=== PATIENT | female | born 2005 | race Caucasian/White ===

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

== ENCOUNTER 2024-03-04 07:06 | Emergency (ER) | payer OTHER, SELFPAY ==
[2024-03-04 07:09] VITALS: BP 104/74; PULSE 98; RESP 22; TEMP 36.6; O2SAT 97; BMI 19.4
--- NOTE | 2024-03-04 07:19 | CRLHL7_ITS ---
For Patients: As a result of the Century Cures Act, medical imaging exams and procedure reports are released immediately into your electronic medical record. You may view this report before your referring provider. If you have questions, please contact your health care provider. Indication: Dyspnea Technique: Chest 2 views Comparison: Chest x-ray 10/14/2023 Findings/Impression: Cardiovascular and mediastinum: Heart size and vasculature are normal in caliber and appearance. Mediastinum is within normal limits. Lungs and pleural spaces: Lungs are clear. No sign of infiltrate or mass. No sign of pleural effusion. No pneumothorax. Bones and soft tissues: No significant findings. Dictated by Miguel Ángel Summers MD @ 03/04/2024 7:56:12 AM (Electronically Signed)
--- NOTE | 2024-03-04 07:21 | ED.GENADULT ---
HPI - General Adult General Chief complaint: Shortness of Breath/Dyspnea Stated complaint: Asthma attack Time Seen by Provider: 03/04/24 07:20 Source: patient Mode of arrival: ambulatory Limitations: no limitations History of Present Illness HPI narrative: 18-year-old female with history of asthma presents to the emergency department for evaluation of shortness of breath and wheezing. Symptoms started last night prior to bed but were mild. Worsened through the night. She attempted to do a nebulizer treatment but then realized she was out of supplies and comes to the emergency department. No fever, no recent pertinent travel. Does have a history of asthma but is not typically on Singulair anymore. No prior history of hospitalization or intubation for asthma. No fevers, no pertinent travel or recent antibiotic use. No known illness exposures. Did not try any other interventions prior to coming to the ED as they were not available to her. States her past medical history is benign besides the asthma, no major long-term health problems. States that her only home medications are her inhaler and Benadryl as well as an oral contraceptive. Nonsmoker. ROS notable for the respiratory symptoms as described above only, otherwise denies times 12 systems. Related Data Home Medications ?Medication ?Instructions ?Recorded ?Confirmed albuterol sulfate 90 mcg/actuation 1 - 2 puff inhalation Q4-6H PRN 05/17/23 03/04/24 aerosol inhaler beclomethasone dipropionate 80 2 inh inhalation BID 05/17/23 03/04/24 mcg/actuation HFA breath activated aerosol (Qvar RediHaler) levonorgestrel-ethinyl estradiol 1 tab PO DAILY 05/17/23 03/04/24 0.1 mg-20 mcg tablet (Aviane) montelukast 10 mg tablet 10 mg PO QPM 05/17/23 03/04/24 Previous Rx's ?Medication ?Instructions ?Recorded albuterol sulfate 90 mcg/actuation 2 puff inhalation Q4-6H PRN 03/04/24 aerosol inhaler shortness of breath or wheezing #8.5 grams inhalational spacing device #1 ea 03/04/24 (Flexichamber spacer) ipratropium 0.5 mg-albuterol 3 mg 3 ml inhalation Q6-8H PRN Asthma 03/04/24 (2.5 mg base)/3 mL nebulization exacerbation #90 mL soln nebulizer accessories #1 ea 03/04/24 prednisone 20 mg tablet 20 mg PO DAILY #5 tabs 03/04/24 Allergies Allergy/AdvReac Type Severity Reaction Status Date / Time cat dander Allergy Unknown Verified 03/04/24 07:13 dog dander Allergy Unknown Verified 03/04/24 07:13 pollen extracts Allergy Unknown Verified 03/04/24 07:13 [facility] Social History Smoking Status: Never smoker Do you use any of these nicotine containing products: None How often do you have a drink containing alcohol: never AUDIT-C Alcohol total score: 0 Non-prescribed substance use: denies use Exam Const: Vital Signs, click to edit/add: Vital Signs - 24 hr 03/04/24 07:09 03/04/24 07:51 Temperature 97.8 F Pulse Rate [Pulse Oximeter] 98 72 Respiratory Rate 22 14 Blood Pressure [Ri ght Upper Arm] 104/74 Pulse Oximetry 97 97 Oxygen Delivery Me thod Room Air Room Air Documenting provider has reviewed patient's vital signs: yes Common normals: alert Other: Mildly dyspneic with conversation, sitting upright, mild use of accessory muscles. Appears well-nourished, well-hydrated, very polite. HENMT: Common normals: normocephalic and oropharynx normal Head and scalp: normocephalic Face and sinus: normal facial exam Mouth: oral and palatal mucosa normal Throat: posterior oropharynx normal Eye: Common normals: conjunctivae normal General eye: normal appearance of both eyes Conjunctiva: conjunctiva(e) normal Neck & C-Spine: General: normal visual inspection Chest: Common normals: inspection of chest normal Resp: Other: Mildly increased respiratory effort. Prolonged expiration 3-1 ratio with moderate expiratory wheeze, normal inspiratory findings. No crackles or rhonchi. Slightly decreased air entry. Cardio: Common normals: regular rate, regular rhythm, S1 normal heart sound, S2 normal heart sound and no murmurs Rate: regular rate Rhythm: regular rhythm Heart sounds: S1 normal and S2 normal Extremity: Common normals: normal to inspection, normal capillary refill and no pedal edema Neuro: Sensorium/orientation: alert Speech: speech normal Motor exam: no movement abnormalities noted Psych: Attitude: engaged Activity/motor behavior: appropriate eye contact Mood and affect: euthymic mood Insight: insight good Judgement: judgment good Skin: Common normals: no rashes or lesions noted General skin exam: no rashes or lesions noted Course Course ED Course: 89-year-old female with history of asthma presenting with wheezing. Mildly tachypneic with use of accessory muscles but no signs of hypoxia or impending respiratory failure. Will start DuoNeb, give 40 of prednisone, chest x-ray and swab for COVID as we are seeing a little surge of this and she would be a candidate for Paxlovid or other antiviral medication if indicated. Await clinical response. Reevaluation(s) Time of Reevaluation #1: 08:06 Reevaluation #1: Patient feeling markedly better. Reviewed reassuring chest x-ray, findings. Discussed management. Will re-dose prednisone at home at about 5:00 p.m. tonight and then continue once daily for the next few days. If she feels markedly better after 24 hours, she can wean herself off of the prednisone but continue if there is any clinical concern. Will refill asthma albuterol inhalers as well as nebulizer supplies to her pharmacy. Alarm symptoms reviewed that would warrant ED presentation. Also encouraged daily antihistamine like Claritin, Yvonne or Zyrtec. Patient verbalizes understanding and agreement Vital Signs Vital signs: Initial Vital Signs Temperature 97.8 F 03/04/24 07:09 Temperature Source Temporal Artery Scan 03/04/24 07:09 Pulse Rate 98 03/04/24 07:09 Respiratory Rate 22 03/04/24 07:09 Blood Pressure 104/74 03/04/24 07:09 Blood Pressure Mean 84 03/04/24 07:09 Pulse Oximetry 97 03/04/24 07:09 Oxygen Delivery Method Room Air 03/04/24 07:09 Vital Signs Temperature 97.8 F 03/04/24 07:09 Pulse Rate 98 03/04/24 07:09 Respiratory Rate 22 03/04/24 07:09 Blood Pressure 104/74 03/04/24 07:09 Pulse Oximetry 97 03/04/24 07:09 Oxygen Delivery Method Room Air 03/04/24 07:09 Temperature 97.8 F 03/04/24 07:09 Pulse Rate 72 03/04/24 07:51 Respiratory Rate 14 03/04/24 07:51 Blood Pressure 104/74 03/04/24 07:09 Pulse Oximetry 97 03/04/24 07:51 Oxygen Delivery Method Room Air 03/04/24 07:51 Medications Administered Medications: Discontinued Medications Generic Name Dose Route Start Last Admin Trade Name Myah PRN Reason Stop Dose Admin Albuterol/Ipratropium 1 neb 03/04/24 07:16 03/04/24 07:31 Iprat-Albut 0.5-2.5 Mg/3 Ml Neb IH 03/04/24 07:17 1 neb ONCE ONE Administration Prednisone 40 mg 03/04/24 07:19 03/04/24 07:31 Prednisone 20 Mg Tablet PO 03/04/24 07:20 40 mg ONCE ONE Administration Medical Decision Making Imaging Data Chest x-ray: Attestation: I have reviewed the pertinent imaging results. My impression: Normal chest x-ray Radiologist's impression: Findings/Impression: Cardiovascular and mediastinum: Heart size and vasculature are normal in caliber and appearance. Mediastinum is within normal limits. Lungs and pleural spaces: Lungs are clear. No sign of infiltrate or mass. No sign of pleural effusion. No pneumothorax. Bones and soft tissues: No significant findings. Dictated by Miguel Ángel Summers MD @ 03/04/2024 7:56:12 AM Discharge Plan Discharge Clinical Impression: Asthma with acute exacerbation Patient Disposition: Home w/ Parent or Adult Condition: Improved Instructions: Asthma (DC) Additional Instructions: I am glad that your breathing is doing so much better after the neb treatment. The prednisone will also help. I would like few to take an antihistamine like Claritin, Yvonne or Zyrtec once daily for the next few weeks. I do suspect that allergies are contributing to her symptoms today. I have prescribed some prednisone, take another dose at about 5:00 p.m. tonight and then continue once daily at about 5:00 p.m. for the next few days if needed. After tonight's dose if you are feeling markedly better, you can discontinue the prednisone but hang onto it in case of future flares. I will refill your neb supplies and inhalers. Try to pick pulling machine operator refills of those inhalers every time you go to the pharmacy so that you have multiple ones on hand. Try to use them with the spacer whenever possible as it does make them markedly more effective. If your breathing worsens again, please come back to the emergency department or follow-up with her primary care provider if your having flares requiring use of your albuterol more often than expected. Activity Level: No Restrictions Discharge Diet: Regular Prescriptions: New prednisone 20 mg tablet 20 mg PO DAILY Qty: 5 0RF albuterol sulfate 90 mcg/actuation HFA aerosol inhaler 2 puff inhalation Q4-6H PRN (Reason: shortness of breath or wheezing) Qty: 8.5 12RF (DME) Flexichamber Spacer See Rx Instructions .Route Qty: 1 1RF Rx Instructions: As directed (DME) nebulizer accessories Kit See Rx Instructions .Route Qty: 1 1RF Rx Instructions: As directed ipratropium-albuterol 0.5 mg-3 mg(2.5 mg base)/3 mL solution for nebulization 3 ml inhalation Q6-8H PRN (Reason: Asthma exacerbation) Qty: 90 2RF No Action levonorgestrel-ethinyl estrad [Aviane] 0.1-20 mg-mcg tablet 1 tab PO DAILY montelukast 10 mg tablet 10 mg PO QPM albuterol sulfate 90 mcg/actuation HFA aerosol inhaler 1 - 2 puff inhalation Q4-6H PRN Qvar RediHaler 80 mcg/actuation HFA aerosol breath activated 2 inh INHALATION BID Follow Up/Referrals: Provider,Not a Local [Primary Care Provider] - Stand Alone Forms: [employer] Info Instructions
[2024-03-04] MEDS: IPRAT-ALBUT 0.5-2.5 MG/3 ML NEB 1 NEB IH (07:31)
[2024-03-04] MEDS: predniSONE 20 MG TABLET 40 MG PO (07:31)
[2024-03-04 07:51] VITALS: PULSE 72; RESP 14; O2SAT 97
[2024-03-04 08:13] LABS: PCR FLU A Negative PCR FLU A (Negative); PCR FLU B Negative PCR FLU B (Negative); PCR RSV Negative PCR RSV (Negative); SARS PCR* Negative SARS-CoV-2 (Negative)
== END 2024-03-04 08:20 | disposition home or self-care (01) ==
PROVIDERS: Emergency Provider Family Medicine
DX: J45.901 Unspecified asthma with (acute) exacerbation (principal)
CPT/HCPCS: 71046; 87631; 94640; 99284; J7512

== ENCOUNTER 2024-07-13 18:33 | Inpatient (IN) | payer OTHER, SELFPAY ==
[2024-07-13] VITALS (31 sets, daily range): BP systolic 95–133; BP diastolic 54–118; PULSE 114–165; RESP 16–48; TEMP 36.4–37.1; O2SAT 86–95; BMI 19.4
--- NOTE | 2024-07-13 18:45 | CRLHL7_ITS ---
For Patients: As a result of the Cures Act, medical imaging exams and procedure reports are released immediately into your electronic medical record. You may view this report before your referring provider. If you have questions, please contact your health care provider. INDICATION: Shortness of breath, viral symptoms, asthma exacerbation TECHNIQUE: Chest radiograph 2 views COMPARISON: None FINDINGS: Mediastinum: The mediastinum is normal in appearance. The heart silhouette is normal in size and morphology. Lung: Severe hyperinflation is seen both lungs which can be due to asthma. No sign of pleural effusion seen. No pneumothorax is identified. Bone and Soft tissue: Unremarkable for age. IMPRESSION: 1. Severe hyperinflation is seen both lungs which can be due to asthma. Dictated by Laurent Reyes MD @ 07/13/2024 7:31:43 PM Dictated by: Laurent Reyes MD @ 07/13/2024 19:31:48 (Electronically Signed)
[2024-07-13] MEDS: predniSONE 20 MG TABLET 60 MG PO (18:55)
[2024-07-13] MEDS: IPRAT-ALBUT 0.5-2.5 MG/3 ML NEB 1 NEB IH ×2 (18:56→21:14)
[2024-07-13] MEDS: ALBUTEROL SULFATE 2.5 MG/3 ML VIAL.NEB NEB ×4 (18:58→22:53)
--- NOTE | 2024-07-13 19:40 | ED_ITS ---
HPI - Asthma General Date Seen: 07/13/24 <Duran Wagoner Jorge Luis - Last Filed: 07/13/24 20:29> Chief Complaint: Asthma <Duran Kang DO - Last Filed: 07/13/24 20:29> Stated Complaint: asthma attack <Duran Kang DO - Last Filed: 07/13/24 20:29> Time Seen by Provider: 07/13/24 18:36 <Duran Wagoner Jorge Luis DO - Last Filed: 07/13/24 20:29> Source: patient and family (Grandmother) <Duran Kang - Last Filed: 07/13/24 20:29> Mode of arrival: ambulatory <Duran Ciaran Joreg Luis - Last Filed: 07/13/24 20:29> Limitations: no limitations <Duran Kang - Last Filed: 07/13/24 20:29> History of Present Illness HPI Narrative: Patient is a 18-year-old female presenting to emergency department with her grandmother for an asthma exacerbation. She has been having viral symptoms this morning and her asthma has been gradually getting worse throughout the day. She has been using her rescue inhalers with some improvement what still is not feel like she is getting enough improvement. She has been to this emergency department multiple times before for asthma exacerbation which has previously been caused by RSV. She states they are trying to set up an appointment to adjust her asthma medications. Denies chest pain. Denies fevers, chills, weakness, numbness, abdominal pain, diarrhea, lightheadedness, dizziness. Has been having a cough and rhinorrhea. No history of blood clots and has not noticed any lower extremity swelling. <Duran Ciaran Kang - Last Filed: 07/13/24 20:29> Related Data Home Medications: Home Medications ?Medication ?Instructions ?Recorded ?Confirmed albuterol sulfate 90 mcg/actuation 1 - 2 puff inhalation Q4-6H PRN 05/17/23 aerosol inhaler beclomethasone dipropionate 80 2 inh inhalation BID 05/17/23 03/04/24 mcg/actuation HFA breath activated aerosol (Qvar RediHaler) levonorgestrel-ethinyl estradiol 1 tab PO DAILY 05/17/23 03/04/24 0.1 mg-20 mcg tablet (Aviane) montelukast 10 mg tablet 10 mg PO QPM 05/17/23 03/04/24 Previous Rx's ?Medication ?Instructions ?Recorded albuterol sulfate 90 mcg/actuation 2 puff inhalation Q4-6H PRN 03/04/24 aerosol inhaler shortness of breath or wheezing #8.5 grams inhalational spacing device #1 ea 03/04/24 (Flexichamber spacer) ipratropium 0.5 mg-albuterol 3 mg 3 ml inhalation Q6-8H PRN Asthma 03/04/24 (2.5 mg base)/3 mL nebulization exacerbation #90 mL soln nebulizer accessories #1 ea 03/04/24 prednisone 20 mg tablet 20 mg PO DAILY #5 tabs 03/04/24 prednisone 20 mg tablet 40 mg (2 x 20 mg) PO DAILY #8 tabs 07/13/24 <Duran Kang DO - Last Filed: 07/13/24 20:29> Allergies/Adverse Reactions: Allergies Allergy/AdvReac Type Severity Reaction Status Date / Time cat dander Allergy Unknown Verified 03/04/24 07:13 dog dander Allergy Unknown Verified 03/04/24 07:13 pollen extracts Allergy Unknown Verified 03/04/24 07:13 <Duran Kang DO - Last Filed: 07/13/24 20:29> Review of Systems Status of ROS Reports: 10 or more systems reviewed and unremarkable except as noted in History and below <Durna Kang DO - Last Filed: 07/13/24 20:29> PFSH PFS Social History: Social History Smoking Status: Never smoker Do you use any of these nicotine containing products: None How often do you have a drink containing alcohol: never AUDIT-C Alcohol total score: 0 Non-prescribed substance use: denies use <Duran Kang DO - Last Filed: 07/13/24 20:29> Exam Narrative: Exam Narrative: Const: Well-nourished, Well-developed, in moderate distress Eyes: PERRL, no conjunctival injection, and symmetrical lids HENT: Atraumatic external nose and ears. Moist mucous membranes. Neck: Symmetric, trachea midline, No thyromegaly. CVS: RRR, No murmurs or gallops. Peripheral pulses 2+ and equal in all extremities RESP: Increased respiratory effort with diffuse wheezing GI: Nontender/Nondistended, No rebound or guarding. MSK:Extremities w/o deformity, Normal Active ROM Skin: Warm, Dry. No rashes or lesions. Neuro: Normal Muscle tone, No focal neurological deficits. Psych: Awake, Alert, & Oriented x3. Appropriate mood and affect. <Duran Kang, DO - Last Filed: 07/13/24 20:29> Const: Vital Signs, click to edit/add: Vital Signs - 24 hr 07/13/24 18:41 07/13/24 18:42 07/13/24 18:45 Temperature Pulse Rate 163 H 165 H 160 H Pulse Rate [Pulse Oximeter] Respiratory Rate Blood Pressure 133/118 H Blood Pressure [Le ft Upper Arm] Pulse Oximetry 88 88 90 Oxygen Delivery Me thod Oxygen Flow Rate 07/13/24 18:59 07/13/24 19:00 07/13/24 19:09 Temperature 97.6 F Pulse Rate 144 H Pulse Rate [Pulse Oximeter] 154 H Respiratory Rate 48 H 36 H Blood Pressure Blood Pressure [Le ft Upper Arm] 120/88 Pulse Oximetry 86 L 91 92 Oxygen Delivery Me thod Room Air Oxygen Flow Rate 07/13/24 19:15 07/13/24 19:30 07/13/24 19:45 Temperature Pulse Rate 139 H 133 H 124 H Pulse Rate [Pulse Oximeter] Respiratory Rate 22 Blood Pressure Blood Pressure [Le ft Upper Arm] Pulse Oximetry 93 93 94 Oxygen Delivery Me thod Oxygen Flow Rate 07/13/24 20:00 07/13/24 20:15 07/13/24 20:30 Temperature Pulse Rate 128 H 135 H 129 H Pulse Rate [Pulse Oximeter] Respiratory Rate 24 Blood Pressure Blood Pressure [Le ft Upper Arm] Pulse Oximetry 92 93 92 Oxygen Delivery Me thod Room Air Oxygen Flow Rate 07/13/24 20:45 07/13/24 21:00 07/13/24 21:15 Temperature Pulse Rate 121 H 134 H 132 H Pulse Rate [Pulse Oximeter] Respiratory Rate Blood Pressure Blood Pressure [Le ft Upper Arm] Pulse Oximetry 92 91 88 Oxygen Delivery Me thod Oxygen Flow Rate 07/13/24 21:30 07/13/24 21:41 07/13/24 21:45 Temperature Pulse Rate 123 H 116 H 118 H Pulse Rate [Pulse Oximeter] Respiratory Rate 22 Blood Pressure 95/54 L Blood Pressure [Le ft Upper Arm] Pulse Oximetry 94 93 93 Oxygen Delivery Me thod Room Air Oxygen Flow Rate 07/13/24 21:55 07/13/24 22:00 07/13/24 22:05 Temperature Pulse Rate 120 H Pulse Rate [Pulse Oximeter] Respiratory Rate 24 24 Blood Pressure Blood Pressure [Le ft Upper Arm] Pulse Oximetry 89 90 89 Oxygen Delivery Me thod Room Air Room Air Oxygen Flow Rate 07/13/24 22:06 Temperature Pulse Rate Pulse Rate [Pulse Oximeter] Respiratory Rate 24 Blood Pressure Blood Pressure [Le ft Upper Arm] Pulse Oximetry 89 Oxygen Delivery Me thod Nasal Cannula Oxygen Flow Rate 2 <Duran Kang, DO - Last Filed: 07/13/24 20:29> Vital Signs, click to edit/add: Vital Signs - 24 hr 07/13/24 18:41 07/13/24 18:42 07/13/24 18:45 Temperature Pulse Rate 163 H 165 H 160 H Pulse Rate [Pulse Oximeter] Respiratory Rate Blood Pressure 133/118 H Blood Pressure [Le ft Upper Arm] Pulse Oximetry 88 88 90 Oxygen Delivery Me thod Oxygen Flow Rate 07/13/24 18:59 07/13/24 19:00 07/13/24 19:09 Temperature 97.6 F Pulse Rate 144 H Pulse Rate [Pulse Oximeter] 154 H Respiratory Rate 48 H 36 H Blood Pressure Blood Pressure [Le ft Upper Arm] 120/88 Pulse Oximetry 86 L 91 92 Oxygen Delivery Me thod Room Air Oxygen Flow Rate 07/13/24 19:15 07/13/24 19:30 07/13/24 19:45 Temperature Pulse Rate 139 H 133 H 124 H Pulse Rate [Pulse Oximeter] Respiratory Rate 22 Blood Pressure Blood Pressure [Le ft Upper Arm] Pulse Oximetry 93 93 94 Oxygen Delivery Me thod Oxygen Flow Rate 07/13/24 20:00 07/13/24 20:15 07/13/24 20:30 Temperature Pulse Rate 128 H 135 H 129 H Pulse Rate [Pulse Oximeter] Respiratory Rate 24 Blood Pressure Blood Pressure [Le ft Upper Arm] Pulse Oximetry 92 93 92 Oxygen Delivery Me thod Room Air Oxygen Flow Rate 07/13/24 20:45 07/13/24 21:00 07/13/24 21:15 Temperature Pulse Rate 121 H 134 H 132 H Pulse Rate [Pulse Oximeter] Respiratory Rate Blood Pressure Blood Pressure [Le ft Upper Arm] Pulse Oximetry 92 91 88 Oxygen Delivery Me thod Oxygen Flow Rate 07/13/24 21:30 07/13/24 21:41 07/13/24 21:45 Temperature Pulse Rate 123 H 116 H 118 H Pulse Rate [Pulse Oximeter] Respiratory Rate 22 Blood Pressure 95/54 L Blood Pressure [Le ft Upper Arm] Pulse Oximetry 94 93 93 Oxygen Delivery Me thod Room Air Oxygen Flow Rate 07/13/24 21:55 07/13/24 22:00 07/13/24 22:05 Temperature Pulse Rate 120 H Pulse Rate [Pulse Oximeter] Respiratory Rate 24 24 Blood Pressure Blood Pressure [Le ft Upper Arm] Pulse Oximetry 89 90 89 Oxygen Delivery Me thod Room Air Room Air Oxygen Flow Rate 07/13/24 22:06 Temperature Pulse Rate Pulse Rate [Pulse Oximeter] Respiratory Rate 24 Blood Pressure Blood Pressure [Le ft Upper Arm] Pulse Oximetry 89 Oxygen Delivery Me thod Nasal Cannula Oxygen Flow Rate 2 <Estiven Alvarado MD - Last Filed: 07/13/24 22:08> Course Course ED Course: Patient signed out to Dr. Alvarado at 9:[address] Alvarado and Dr. Kang recheck the patient at her bedside. She is not not received 60 mg of prednisone, DuoNeb x1, albuterol neb x3. She had presented with shortness of breath, chest tightness, and was hypoxic and tachycardic up to the 160s. After treatments, sats are now about 90-91% on room air. Patient is alert, oriented, conversant and watching TV. She says she is feeling quite a bit better but still having some mild chest tightness. Repeat lung exam reveals bilateral expiratory wheezes throughout. She is moving some air but still moderately tight. Will order additional DuoNeb (for an ER total of 1 mg ipratropium, and an additional dose of albuterol). Also will give magnesium sulfate 2 g IV. Because of tachycardia, which I think is probably related to beta agonist him, will also give a 500 mL bolus of saline. Recheck -945. His completed 2nd DuoNeb and magnesium sulfate infusion. Says she is feeling much better. Repeat lung exam reveals generally clear lung sounds with minimal ongoing wheezing. Much better than my 1st exam. Oxygen sat up to 94% room air. Heart rate still about 120-130, sinus tach on the monitor. She is alert, watching television with her mother. Recheck -1005. Her sister port that she is hypoxic again. Sats are 88-89% on room air. Will place her on nasal cannula. I re-evaluated the patient. She still alert. Respirations are unlabored. At this point not needing high-flow nasal cannula, BiPAP. However with recurrent hypoxia given the number of nebs she has already received here in the ER, I think she needs hospitalization for oxygen supplementation. Patient and her mother agree. Contacted our hospitalist, Dr. Dias who graciously accepts for admission. <Estiven Alvarado MD - Last Filed: 07/13/24 22:08> Vital Signs Vital signs: Initial Vital Signs Pulse Rate 163 H 07/13/24 18:41 Blood Pressure 133/118 H 07/13/24 18:41 Blood Pressure Mean 123 H 07/13/24 18:41 Pulse Oximetry 88 07/13/24 18:41 Vital Signs Pulse Rate 163 H 07/13/24 18:41 Blood Pressure 133/118 H 07/13/24 18:41 Pulse Oximetry 88 07/13/24 18:41 Temperature 97.6 F 07/13/24 18:59 Pulse Rate 120 H 07/13/24 22:00 Respiratory Rate 24 07/13/24 22:06 Blood Pressure 95/54 L 07/13/24 21:41 Pulse Oximetry 89 07/13/24 22:06 Oxygen Delivery Method Nasal Cannula 07/13/24 22:06 Oxygen Flow Rate 2 07/13/24 22:06 <Duran Kang DO - Last Filed: 07/13/24 20:29> Initial Vital Signs Pulse Rate 163 H 07/13/24 18:41 Blood Pressure 133/118 H 07/13/24 18:41 Blood Pressure Mean 123 H 07/13/24 18:41 Pulse Oximetry 88 07/13/24 18:41 Vital Signs Pulse Rate 163 H 07/13/24 18:41 Blood Pressure 133/118 H 07/13/24 18:41 Pulse Oximetry 88 07/13/24 18:41 Temperature 97.6 F 07/13/24 18:59 Pulse Rate 120 H 07/13/24 22:00 Respiratory Rate 24 07/13/24 22:06 Blood Pressure 95/54 L 07/13/24 21:41 Pulse Oximetry 89 07/13/24 22:06 Oxygen Delivery Method Nasal Cannula 07/13/24 22:06 Oxygen Flow Rate 2 07/13/24 22:06 <Estiven Alvarado MD - Last Filed: 07/13/24 22:08> Medications Administered Medications: Discontinued Medications Generic Name Dose Route Start Last Admin Trade Name Rodolfoq PRN Reason Stop Dose Admin Albuterol 2.5 mg 07/13/24 18:44 07/13/24 18:58 Albuterol Sulfate 2.5 Mg/3 Ml Vial.Neb [facility] 07/13/24 18:45 2.5 mg ONCE ONE Administration Albuterol 2.5 mg 07/13/24 18:56 07/13/24 18:58 Albuterol Sulfate 2.5 Mg/3 Ml Vial.Neb [facility] 07/13/24 18:57 2.5 mg ONCE ONE Administration Albuterol 2.5 mg 07/13/24 20:10 07/13/24 20:31 Albuterol Sulfate 2.5 Mg/3 Ml Vial.Neb [facility] 07/13/24 20:11 2.5 mg ONCE ONE Administration Albuterol/Ipratropium 1 neb 07/13/24 18:44 07/13/24 18:56 Iprat-Albut 0.5-2.5 Mg/3 Ml Neb 07/13/24 18:45 1 neb ONCE ONE Administration Albuterol/Ipratropium 1 neb 07/13/24 21:07 07/13/24 21:14 Iprat-Albut 0.5-2.5 Mg/3 Ml [facility] 07/13/24 21:08 1 neb ONCE ONE Administration Sodium Chloride 500 mls @ 500 mls/hr 07/13/24 21:07 07/13/24 21:14 0.9 % Sodium Chloride 500 Ml IV 07/13/24 22:06 500 mls/hr .Q1H ONE Administration Magnesium Sulfate 2 gm in 50 mls @ 150 mls/hr 07/13/24 21:07 07/13/24 21:15 Magnesium Iv IVPB 07/13/24 21:26 150 mls/hr ONCE ONE Administration Prednisone 60 mg 07/13/24 18:45 07/13/24 18:55 Prednisone 20 Mg Tablet PO 07/13/24 18:46 60 mg ONCE ONE Administration <Duran Kang, DO - Last Filed: 07/13/24 20:29> Discontinued Medications Generic Name Dose Route Start Last Admin Trade Name Myah PRN Reason Stop Dose Admin Albuterol 2.5 mg 07/13/24 18:44 07/13/24 18:58 Albuterol Sulfate 2.5 Mg/3 Ml Vial.Neb [facility] 07/13/24 18:45 2.5 mg ONCE ONE Administration Albuterol 2.5 mg 07/13/24 18:56 07/13/24 18:58 Albuterol Sulfate 2.5 Mg/3 Ml Vial.[facility] 07/13/24 18:57 2.5 mg ONCE ONE Administration Albuterol 2.5 mg 07/13/24 20:10 07/13/24 20:31 Albuterol Sulfate 2.5 Mg/3 Ml Vial.[facility] 07/13/24 20:11 2.5 mg ONCE ONE Administration Albuterol/Ipratropium [address] [facility] 07/13/24 18:44 07/13/24 18:56 Iprat-Albut 0.5-2.5 Mg/3 Ml [facility] 07/13/24 18:45 1 neb ONCE ONE Administration Albuterol/Ipratropium [address] [facility] 07/13/24 21:07 07/13/24 21:14 Iprat-Albut 0.5-2.5 Mg/3 Ml [facility] 07/13/24 21:08 1 neb ONCE ONE Administration Sodium Chloride 500 mls @ 500 mls/hr 07/13/24 21:07 07/13/24 21:14 0.9 % Sodium Chloride 500 Ml IV 07/13/24 22:06 500 mls/hr .Q1H ONE Administration Magnesium Sulfate 2 gm in 50 mls @ 150 mls/hr 07/13/24 21:07 07/13/24 21:15 Magnesium Iv IVPB 07/13/24 21:26 150 mls/hr ONCE ONE Administration Prednisone 60 mg 07/13/24 18:45 07/13/24 18:55 Prednisone 20 Mg Tablet PO 07/13/24 18:46 60 mg ONCE ONE Administration <Estiven Alvarado MD - Last Filed: 07/13/24 22:08> MDM - Asthma MDM Narrative Medical decision making narrative: Patient is an 17-year-old female presenting for an asthma exacerbation. There is concerned about some viral issues causing her symptoms will do a COVID/flu/RSV test. Seems unlikely to be ACS related considering her age. PE seems unlikely considering presentation as asthma is much more likely cause of her symptoms. Will do a chest x-ray to look for signs of pneumonia. Prednisone given along with DuoNebs and two albuterol treatments. She is feeling better of the DuoNebs and albuterol. She is tachycardic and feeling jittery but this is likely due to the overall. Repeat auscultation of her lungs shows greatly improved wheezing with only mild expiratory wheezes heard at this time. I offered further his breathing treatments but she is not feel like she needs them anymore. X-ray showed no concerning abnormalities as reviewed by myself and the radiologist. Viral swabs are negative. While room onto the patient she became short of breath again in on exam she was wheezing notably again. A 3rd albuterol was given and after this appeared all she states this was the best she has felt so far. After re-examination after the albuterol there is very faint wheezing on exhalation. Definitely better than previously. Will continue to monitor her. Did inform her next step would possibly be magnesium IV. Will prescribe prednisone at discharge. Since she got prednisone emergency department will give 4 more days to start tomorrow for a total of 5 days. <Duran Kang, - Last Filed: 07/13/24 20:29> Lab Data Labs: Lab Results 07/13/24 Range/Units 19:05 SARS-CoV-2 (PCR) Negative SARS-CoV-2 (Negative) Influenza Type A (PCR) Negative PCR FLU A (Negative) Influenza Type B (PCR) Negative PCR FLU B (Negative) RSV (PCR) Negative PCR RSV (Negative) <Duran Kang, - Last Filed: 07/13/24 20:29> Lab Results 07/13/24 Range/Units 19:05 SARS-CoV-2 (PCR) Negative SARS-CoV-2 (Negative) Influenza Type A (PCR) Negative PCR FLU A (Negative) Influenza Type B (PCR) Negative PCR FLU B (Negative) RSV (PCR) Negative PCR RSV (Negative) <Estiven Alvarado MD - Last Filed: 07/13/24 22:08> Discharge Plan Discharge Clinical Impression: Hypoxia Asthma with acute exacerbation Qualifiers: Asthma severity: unspecified severity Asthma persistence: unspecified Qualified Code(s): J45.901 - Unspecified asthma with (acute) exacerbation <Duran Kang DO - Last Filed: 07/13/24 20:29> Instructions: Asthma (DC) <Duran Kang DO - Last Filed: 07/13/24 20:29> Additional Instructions: Make sure to have close follow-up for your asthma exacerbation. 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 I do find it bili would be the best option to get in the soonest. Make sure to use your home treatments and take the prednisone as directed. <Duran Kang DO - Last Filed: 07/13/24 20:29> Prescriptions: New prednisone 20 mg tablet 40 mg PO DAILY Qty: 8 0RF No Action levonorgestrel-ethinyl estrad [Aviane] 0.1-20 mg-mcg tablet 1 tab PO DAILY montelukast 10 mg tablet 10 mg PO QPM albuterol sulfate 90 mcg/actuation HFA aerosol inhaler 1 - 2 puff inhalation Q4-6H PRN Qvar RediHaler 80 mcg/actuation HFA aerosol breath activated 2 inh INHALATION BID prednisone 20 mg tablet 20 mg PO DAILY Qty: 5 0RF albuterol sulfate 90 mcg/actuation HFA aerosol inhaler 2 puff inhalation Q4-6H PRN (Reason: shortness of breath or wheezing) Qty: 8.5 12RF (DME) Flexichamber Spacer See Rx Instructions .Route Qty: 1 1RF Rx Instructions: As directed (DME) nebulizer accessories Kit See Rx Instructions .Route Qty: 1 1RF Rx Instructions: As directed ipratropium-albuterol 0.5 mg-3 mg(2.5 mg base)/3 mL solution for nebulization 3 ml inhalation Q6-8H PRN (Reason: Asthma exacerbation) Qty: 90 2RF <Duran Kang DO - Last Filed: 07/13/24 20:29> Follow Up/Referrals: Provider,Not a Local [Primary Care Provider] - <Duran Kang DO - Last Filed: 07/13/24 20:29> Stand Alone Forms: MyHealth Info Instructions <Duran Kang DO - Last Filed: 07/13/24 20:29>
[2024-07-13 19:47] LABS: PCR FLU A Negative PCR FLU A (Negative); PCR FLU B Negative PCR FLU B (Negative); PCR RSV Negative PCR RSV (Negative); SARS PCR* Negative SARS-CoV-2 (Negative)
[2024-07-13] MEDS: 0.9 % SODIUM CHLORIDE 500 ML 500 ML IV (21:14)
[2024-07-13] MEDS: MAGNESIUM IV 2 GM/50 ML PIGGYBACK IVPB (21:15)
--- NOTE | 2024-07-13 23:23 | P.IMHP_ITS ---
Hospitalist- H&P: HPI History of Present Illness Time Seen by Provider: 22:40 Date Seen: 07/14/24 Chief complaint: asthma attack Narrative: Emma Eid is a 18 year old female with long standing h/o asthma who presented through the ER with a severe asthma exacerbation that began this morning. She has had asthma since the age of 2 and has been taking daily montelukast, Qvar, and uses her rescue inhaler twice a week, usually at night. She has allergies to pet dander, grass and several other environmental allergens. She owns a dog and is currently living with her grandparents [place] their [place], although she avoids the barn. She went to bed in her usual state of health, but woke up this morning feeling congested, like her chest was tight and full of mucous. She tried her rescue inhaler without effect. She denies sick contacts, fevers, chest pain, headaches, or rashes. ER course: Duoneb x 2, albuterol neb x 3, Magnesium 2g IV, prednisone 60 mg po (given at 6:53 p.m.), Covid/flu/RSV swab negative. Review of Systems Status of ROS: Reports: unobtainable due to medical condition (acute respirator failure) [facility] Medical History (Updated 07/14/24 @ 00:23 by Renate Dias MD) Multiple environmental allergies ?Z91.09 - Other allergy status, other than to drugs and biological substances (ICD-10) Asthma ?J45.909 - Unspecified asthma, uncomplicated (ICD-10) Social History (Updated 07/14/24 @ 00:03 by Renate Dias MD) Narrative: Recently graduated from [employer] and looking for a job. Living with grandparents. Denies current tobacco use. Quit smoking 2-3 years ago, had smoked 1/2 ppd for 2 years. Denies EtOH use. Occasional marijuana use, last used 2 months ago. FULL CODE. Smoking Status: Former smoker Do you use any of these nicotine containing products: None How often do you have a drink containing alcohol: never AUDIT-C Alcohol total score: 0 Non-prescribed substance use: denies use Meds Home Medications and Allergies Home Medications ?Medication ?Instructions ?Recorded ?Confirmed ?Type albuterol sulfate 90 mcg/actuation 1 - 2 puff inhalation Q4-6H PRN 05/17/23 03/04/24 History aerosol inhaler beclomethasone dipropionate 80 2 inh inhalation BID 05/17/23 03/04/24 History mcg/actuation HFA breath activated aerosol (Qvar RediHaler) levonorgestrel-ethinyl estradiol 1 tab PO DAILY 05/17/23 03/04/24 History 0.1 mg-20 mcg tablet (Aviane) montelukast 10 mg tablet 10 mg PO QPM 05/17/23 03/04/24 History Allergies Allergy/AdvReac Type Severity Reaction Status Date / Time cat dander Allergy Unknown Verified 03/04/24 07:13 dog dander Allergy Unknown Verified 03/04/24 07:13 pollen extracts Allergy Unknown Verified 03/04/24 07:13 Exam Narrative: Exam Narrative: General: In bed, tripoding, diaphoretic, one-word answers, tachypneic, anxious, awake, alert, oriented x3. HEENT: Normocephalic atraumatic, pupils equally round and reactive to light and accommodation. Oropharynx clear. Mucous membranes are moist. No cervical lymphadenopathy. Cardiovascular: Tachycardia, regular. No murmurs, gallops, or rubs. Chest: Severe respiratory distress as above with use of accessory muscles. Tight, expiratory wheezes throughout, no crackles. Abdomen: Bowel sounds present. Soft, nondistended, nontender. No hepatosplenomegaly or masses. Extremities: No edema, no cyanosis or clubbing. Skin: No jaundice, no rashes on visible skin. Const: Vital Signs, click to edit/add: Vital Signs - 24 hr 07/13/24 18:41 07/13/24 18:42 07/13/24 18:45 Temperature Pulse Rate 163 H 165 H 160 H Pulse Rate [Left] Pulse Rate [Pulse Oximeter] Respiratory Rate Blood Pressure 133/118 H Blood Pressure [Le ft Upper Arm] Blood Pressure [Ri ght Arm] Pulse Oximetry 88 88 90 Oxygen Delivery Me thod Oxygen Flow Rate 07/13/24 18:59 07/13/24 19:00 07/13/24 19:09 Temperature 97.6 F Pulse Rate 144 H Pulse Rate [Left] Pulse Rate [Pulse Oximeter] 154 H Respiratory Rate 48 H 36 H Blood Pressure Blood Pressure [Le ft Upper Arm] 120/88 Blood Pressure [Ri ght Arm] Pulse Oximetry 86 L 91 92 Oxygen Delivery Me thod Room Air Oxygen Flow Rate 07/13/24 19:15 07/13/24 19:30 07/13/24 19:45 Temperature Pulse Rate 139 H 133 H 124 H Pulse Rate [Left] Pulse Rate [Pulse Oximeter] Respiratory Rate 22 Blood Pressure Blood Pressure [Le ft Upper Arm] Blood Pressure [Ri ght Arm] Pulse Oximetry 93 93 94 Oxygen Delivery Me thod Oxygen Flow Rate 07/13/24 20:00 07/13/24 20:15 07/13/24 20:30 Temperature Pulse Rate 128 H 135 H 129 H Pulse Rate [Left] Pulse Rate [Pulse Oximeter] Respiratory Rate 24 Blood Pressure Blood Pressure [Le ft Upper Arm] Blood Pressure [Ri ght Arm] Pulse Oximetry 92 93 92 Oxygen Delivery Me thod Room Air Oxygen Flow Rate 07/13/24 20:45 07/13/24 21:00 07/13/24 21:15 Temperature Pulse Rate 121 H 134 H 132 H Pulse Rate [Left] Pulse Rate [Pulse Oximeter] Respiratory Rate Blood Pressure Blood Pressure [Le ft Upper Arm] Blood Pressure [Ri ght Arm] Pulse Oximetry 92 91 88 Oxygen Delivery Me thod Oxygen Flow Rate 07/13/24 21:30 07/13/24 21:41 07/13/24 21:45 Temperature Pulse Rate 123 H 116 H 118 H Pulse Rate [Left] Pulse Rate [Pulse Oximeter] Respiratory Rate 22 Blood Pressure 95/54 L Blood Pressure [Le ft Upper Arm] Blood Pressure [Ri ght Arm] Pulse Oximetry 94 93 93 Oxygen Delivery Me thod Room Air Oxygen Flow Rate 07/13/24 21:55 07/13/24 22:00 07/13/24 22:05 Temperature Pulse Rate 120 H Pulse Rate [Left] Pulse Rate [Pulse Oximeter] Respiratory Rate 24 24 Blood Pressure Blood Pressure [Le ft Upper Arm] Blood Pressure [Ri ght Arm] Pulse Oximetry 89 90 89 Oxygen Delivery Me thod Room Air Room Air Oxygen Flow Rate 07/13/24 22:06 07/13/24 22:10 07/13/24 22:15 Temperature Pulse Rate Pulse Rate [Left] Pulse Rate [Pulse Oximeter] Respiratory Rate 24 Blood Pressure Blood Pressure [Le ft Upper Arm] Blood Pressure [Ri ght Arm] Pulse Oximetry 89 92 90 Oxygen Delivery Me thod Nasal Cannula Nasal Cannula Nasal Cannula Oxygen Flow Rate 2 2 3 07/13/24 23:14 Temperature 98.7 F Pulse Rate Pulse Rate [Left] 123 H Pulse Rate [Pulse Oximeter] Respiratory Rate Blood Pressure Blood Pressure [Le ft Upper Arm] Blood Pressure [Ri ght Arm] 118/72 Pulse Oximetry 92 Oxygen Delivery Me thod Nasal Cannula Oxygen Flow Rate 5 Hospitalist - H&P: Result Labs Labs: 07/13/2024 11:30 p.m. ABG: PH 7.39. PCO2 32 mm Hg. PO2 74 mm Hg. HC03 19 millimoles per L. Total CO2 17 millimoles per L. Ordering Physician: Duran Kang D.O. Date of Service: 07/13/24 Procedure(s): XR chest 2V Accession Number(s): [id number] cc: Duran Kang D.O.; Provider,Not a Local~ For Patients: As a result of the Cures Act, medical imaging exams and procedure reports are released immediately into your electronic medical record. You may view this report before your referring provider. If you have questions, please contact your health care provider. INDICATION: Shortness of breath, viral symptoms, asthma exacerbation TECHNIQUE: Chest radiograph 2 views COMPARISON: None FINDINGS: Mediastinum: The mediastinum is normal in appearance. The heart silhouette is normal in size and morphology. Lung: Severe hyperinflation is seen both lungs which can be due to asthma. No sign of pleural effusion seen. No pneumothorax is identified. Bone and Soft tissue: Unremarkable for age. IMPRESSION: 1. Severe hyperinflation is seen both lungs which can be due to asthma. Dictated by Laurent Reyes MD @ 07/13/2024 7:31:43 PM Dictated by: Laurent Reyes MD @ 07/13/2024 19:31:48 (Electronically Signed) Assessment and Plan Assessment and plan (1) Acute hypoxemic respiratory failure: Status: Acute (2) Asthma with acute exacerbation: Status: Acute Plan - Life threatening asthma exacerbation with tripoding, diaphoretic, HR>120, hypoxic. Admit to CCU, start high flow NC, transfer as patient has high likelihood of needing mechanical ventilation/ICU care. ABG obtained. I do not have RT or ability to do peak flow at this time. Continue alb and alb/ipatroprium nebs. Prednisone and magnesium given in ED. Could consider epinephrine as patient has environmental allergies that may contribute to asthma.
[2024-07-13 23:37] LABS: ABG PCO2 32 mmHG (35-45); Base Excess ABG -5.2 mmol/L (-3.0-3.0); HCO3 ABG 19 mmol/L (21-28); Oxygen Saturation ABG 95 % (92-100); TCO2 ABG 17 mmol/l (21-30); pH ABG 7.39 (7.35-7.45)
[2024-07-13 23:41] LABS: Carboxyhemoglobin* < 1.0 % (0.0-5.0)
[2024-07-13] MEDS: 0.9 % SODIUM CHLORIDE 1000 ml 1,000 ML 50 ML IV (23:49)
[2024-07-14 00:05] VITALS: PULSE 126
--- NOTE | 2024-07-14 00:38 | P.DS_ITS ---
Transfer Discharge Sum: Prov Provider Date Seen: 07/13/24 Date of admission: 07/13/24 23:24 Primary care physician: Not a Local Provider Consults: 07/13/24 23:24 Consult to Respiratory Therapy [CONS] Routine Comment: Reason(s) for RT Consult:: Consult Anticipated date of transfer: 07/14/24 Receiving physician/facility: [place], [facility], [facility] DS: Diagnosis Discharge Diagnosis (1) Acute hypoxemic respiratory failure: Status: Acute (2) Asthma with acute exacerbation: Status: Acute Transfer Discharge Sum: Med Medications Active and Home Medications: Home Medications albuterol sulfate 90 mcg/actuation aerosol inhaler 1 - 2 puff inhalation Q4-6H PRN 05/17/23 [History Confirmed 03/04/24] beclomethasone dipropionate 80 mcg/actuation HFA breath activated aerosol (Qvar RediHaler) 2 inh inhalation BID 05/17/23 [History Confirmed 03/04/24] levonorgestrel-ethinyl estradiol 0.1 mg-20 mcg tablet (Aviane) 1 tab PO DAILY 05/17/23 [History Confirmed 03/04/24] montelukast 10 mg tablet 10 mg PO QPM 05/17/23 [History Confirmed 03/04/24] albuterol sulfate 90 mcg/actuation aerosol inhaler 2 puff inhalation Q4-6H PRN shortness of breath or wheezing #8.5 grams 03/04/24 [Rx] inhalational spacing device (Flexichamber spacer) #1 ea 03/04/24 [Rx] ipratropium 0.5 mg-albuterol 3 mg (2.5 mg base)/3 mL nebulization soln 3 ml inhalation Q6-8H PRN Asthma exacerbation #90 mL 03/04/24 [Rx] nebulizer accessories #1 ea 03/04/24 [Rx] prednisone 20 mg tablet 20 mg PO DAILY #5 tabs 03/04/24 [Rx] prednisone 20 mg tablet 40 mg (2 x 20 mg) PO DAILY #8 tabs 07/13/24 [Rx] Active Medications Acetaminophen (Acetaminophen 325 Mg Tablet) 975 mg PO Q6H PRN PRN Reason: pain or fever Albuterol (Albuterol Sulfate 2.5 Mg/3 Ml Vial.Neb) 2.5 mg NEB Q4H PRN Last Admin: 07/13/24 22:53 Dose: 2.5 mg Albuterol/Ipratropium (Iprat-Albut 0.5-2.5 Mg/3 Ml Neb) 1 neb IH Q6H [facility] Sodium Chloride (0.9 % Sodium Chloride 1000 Ml) 1,000 mls @ 50 mls/hr IV .Q20H ANN MARIE Last Admin: 07/13/24 23:49 Dose: 50 mls/hr Montelukast Sodium (Montelukast 10 Mg Tablet) 10 mg PO QPM [facility] Non-Formulary Medication (Levonorgestrel-Ethinyl Estrad [Aviane]) 1 tab PO DAILY [facility]IE Prednisone (Prednisone 20 Mg Tablet) 60 mg PO DAILYWM ANN MARIE Sodium Chloride (Sodium Chloride 0.9 % (Flush) 10 Ml Syringe) 5 ml IVF .FLUSH PRN Sodium Chloride (Sodium Chloride 0.9 % (Flush) 10 Ml Syringe) 5 ml IVF BID ANN MARIE Transfer Discharge Sum: Hosp Hospital Course Hospital course: Emma Eid is a 18 year old female with long standing h/o asthma who presented through the ER with a severe asthma exacerbation that began this morning. She has had asthma since the age of 2 and has been taking daily montelukast, Qvar, and uses her rescue inhaler twice a week, usually at night. She has allergies to pet dander, grass and several other environmental allergens. She owns a dog and is currently living with her grandparents [place] their [place], although she avoids the barn. She went to bed in her usual state of health, but woke up this morning feeling congested, like her chest was tight and full of mucous. She tried her rescue inhaler without effect. She denies sick contacts, fevers, chest pain, headaches, or rashes. ER course: Duoneb x 2, albuterol neb x 3, Magnesium 2g IV, prednisone 60 mg po (given at 6:53 p.m.), Covid/flu/RSV swab negative. With these interventions patient's HR improved and respiratory status improved, but when she arrived on the medical/surgical floor, she was diaphoretic and started to have more difficulty breathing and higher oxygen needs. She was given an additional albuterol neb, transferred to the CCU and started on high flow oxygen. ABG was also obtained. Her respiratory status improved for a brief time with these interventions. She has had several more episodes of severe respiratory distress even while on high flow. Per patient and family request, I have called [facility] (they do not take patient's over 18), [facility] (they would not take her unless adult hospitals were full), [facility] (no beds), [facility]. Time Spent with Patient Time attestation: Total time spent providing and/or coordinating transfer services: Exam Narrative: Exam Narrative: Upon admission: General: In bed, tripoding, diaphoretic, one-word answers, tachypneic, anxious, awake, alert, oriented x3. HEENT: Normocephalic atraumatic, pupils equally round and reactive to light and accommodation. Oropharynx clear. Mucous membranes are moist. No cervical lymphadenopathy. Cardiovascular: Tachycardia, regular. No murmurs, gallops, or rubs. Chest: Severe respiratory distress as above with use of accessory muscles. Tight, expiratory wheezes throughout, no crackles. Abdomen: Bowel sounds present. Soft, nondistended, nontender. No hepatosplenomegaly or masses. Extremities: No edema, no cyanosis or clubbing. Skin: No jaundice, no rashes on visible skin. Reassessment after neb and on high flow: General: In bed, sitting up, more comfortable, diaphoresis improving, but still present. Awake, alert, oriented x3. Cardiovascular: Tachycardia, regular. No murmurs, gallops, or rubs. Chest: Moderate respiratory distress as above, not currently using accessory muscles. Tight, expiratory wheezes throughout, no crackles. Extremities: No cyanosis. Const: Vital Signs, click to edit/add: Vital Signs - 24 hr 07/13/24 18:41 07/13/24 18:42 07/13/24 18:45 Temperature Pulse Rate 163 H 165 H 160 H Pulse Rate [Left] Pulse Rate [Pulse Oximeter] Respiratory Rate Blood Pressure 133/118 H Blood Pressure [Le ft Arm] Blood Pressure [Le ft Upper Arm] Blood Pressure [Ri ght Arm] Pulse Oximetry 88 88 90 Oxygen Delivery Me thod Oxygen Flow Rate Fraction of Inspir ed Oxygen 07/13/24 18:59 07/13/24 19:00 07/13/24 19:09 Temperature 97.6 F Pulse Rate 144 H Pulse Rate [Left] Pulse Rate [Pulse Oximeter] 154 H Respiratory Rate 48 H 36 H Blood Pressure Blood Pressure [Le ft Arm] Blood Pressure [Le ft Upper Arm] 120/88 Blood Pressure [Ri ght Arm] Pulse Oximetry 86 L 91 92 Oxygen Delivery Me thod Room Air Oxygen Flow Rate Fraction of Inspir ed Oxygen 07/13/24 19:15 07/13/24 19:30 07/13/24 19:45 Temperature Pulse Rate 139 H 133 H 124 H Pulse Rate [Left] Pulse Rate [Pulse Oximeter] Respiratory Rate 22 Blood Pressure Blood Pressure [Le ft Arm] Blood Pressure [Le ft Upper Arm] Blood Pressure [Ri ght Arm] Pulse Oximetry 93 93 94 Oxygen Delivery Me thod Oxygen Flow Rate Fraction of Inspir ed Oxygen 07/13/24 20:00 07/13/24 20:15 07/13/24 20:30 Temperature Pulse Rate 128 H 135 H 129 H Pulse Rate [Left] Pulse Rate [Pulse Oximeter] Respiratory Rate 24 Blood Pressure Blood Pressure [Le ft Arm] Blood Pressure [Le ft Upper Arm] Blood Pressure [Ri ght Arm] Pulse Oximetry 92 93 92 Oxygen Delivery Me thod Room Air Oxygen Flow Rate Fraction of Inspir ed Oxygen 07/13/24 20:45 07/13/24 21:00 07/13/24 21:15 Temperature Pulse Rate 121 H 134 H 132 H Pulse Rate [Left] Pulse Rate [Pulse Oximeter] Respiratory Rate Blood Pressure Blood Pressure [Le ft Arm] Blood Pressure [Le ft Upper Arm] Blood Pressure [Ri ght Arm] Pulse Oximetry 92 91 88 Oxygen Delivery Me thod Oxygen Flow Rate Fraction of Inspir ed Oxygen 07/13/24 21:30 07/13/24 21:41 07/13/24 21:45 Temperature Pulse Rate 123 H 116 H 118 H Pulse Rate [Left] Pulse Rate [Pulse Oximeter] Respiratory Rate 22 Blood Pressure 95/54 L Blood Pressure [Le ft Arm] Blood Pressure [Le ft Upper Arm] Blood Pressure [Ri ght Arm] Pulse Oximetry 94 93 93 Oxygen Delivery Me thod Room Air Oxygen Flow Rate Fraction of Inspir ed Oxygen 07/13/24 21:55 07/13/24 22:00 07/13/24 22:05 Temperature Pulse Rate 120 H Pulse Rate [Left] Pulse Rate [Pulse Oximeter] Respiratory Rate 24 24 Blood Pressure Blood Pressure [Le ft Arm] Blood Pressure [Le ft Upper Arm] Blood Pressure [Ri ght Arm] Pulse Oximetry 89 90 89 Oxygen Delivery Me thod Room Air Room Air Oxygen Flow Rate Fraction of Inspir ed Oxygen 07/13/24 22:06 07/13/24 22:10 07/13/24 22:15 Temperature Pulse Rate Pulse Rate [Left] Pulse Rate [Pulse Oximeter] Respiratory Rate 24 Blood Pressure Blood Pressure [Le ft Arm] Blood Pressure [Le ft Upper Arm] Blood Pressure [Ri ght Arm] Pulse Oximetry 89 92 90 Oxygen Delivery Me thod Nasal Cannula Nasal Cannula Nasal Cannula Oxygen Flow Rate 2 2 3 Fraction of Inspir ed Oxygen 07/13/24 23:14 07/13/24 23:24 07/13/24 23:28 Temperature 98.7 F 98.7 F Pulse Rate Pulse Rate [Left] 123 H 114 H Pulse Rate [Pulse Oximeter] Respiratory Rate 16 Blood Pressure Blood Pressure [Le ft Arm] Blood Pressure [Le ft Upper Arm] Blood Pressure [Ri ght Arm] 118/72 Pulse Oximetry 92 94 94 Oxygen Delivery Me thod Nasal Cannula High Flow Nasal Ca nnula Oxygen Flow Rate 5 20 Fraction of Inspir ed Oxygen 07/13/24 23:32 07/13/24 23:34 07/13/24 23:57 Temperature 98.7 F 97.9 F Pulse Rate Pulse Rate [Left] 123 H 118 H Pulse Rate [Pulse Oximeter] Respiratory Rate 16 Blood Pressure Blood Pressure [Le ft Arm] 115/86 Blood Pressure [Le ft Upper Arm] Blood Pressure [Ri ght Arm] Pulse Oximetry 95 Oxygen Delivery Me thod Nasal Cannula Nasal Cannula Oxygen Flow Rate 6 40 Fraction of Inspir ed Oxygen 40 50 07/14/24 00:05 Temperature Pulse Rate 126 H Pulse Rate [Left] Pulse Rate [Pulse Oximeter] Respiratory Rate Blood Pressure Blood Pressure [Le ft Arm] Blood Pressure [Le ft Upper Arm] Blood Pressure [Ri ght Arm] Pulse Oximetry Oxygen Delivery Me thod Oxygen Flow Rate Fraction of Inspir ed Oxygen Transfer Discharge Sum: Data Data Completed and Pending Completed studies during hospitalization: 07/13/2024 11:30 p.m. ABG: PH 7.39. PCO2 32 mm Hg. PO2 74 mm Hg. HC03 19 millimoles per L. Total CO2 17 millimoles per L. Ordering Physician: Duran Kang D.O. Date of Service: 07/13/24 Procedure(s): XR chest 2V Accession Number(s): [id number] cc: Duran Kang D.O.; Provider,Not a Local~ For Patients: As a result of the Cures Act, medical imaging exams and procedure reports are released immediately into your electronic medical record. You may view this report before your referring provider. If you have questions, please contact your health care provider. INDICATION: Shortness of breath, viral symptoms, asthma exacerbation TECHNIQUE: Chest radiograph 2 views COMPARISON: None FINDINGS: Mediastinum: The mediastinum is normal in appearance. The heart silhouette is normal in size and morphology. Lung: Severe hyperinflation is seen both lungs which can be due to asthma. No sign of pleural effusion seen. No pneumothorax is identified. Bone and Soft tissue: Unremarkable for age. IMPRESSION: 1. Severe hyperinflation is seen both lungs which can be due to asthma. Dictated by Laurent Reyes MD @ 07/13/2024 7:31:43 PM Dictated by: Laurent Reyes MD @ 07/13/2024 19:31:48 (Electronically Signed) Discharge Plan Discharge Disposition: [facility] Date of Admission: 07/13/24 23:24 Attending Provider on Discharge: Renate Dias Primary Care Provider: Provider,Not a Local Discharge Orders: Transfer of Care to Other Hospital (ORDER); Ordered 07/14/24 Ordered By: Renate Dias Oxygen: Yes Oxygen Flow Rate: BiPAP 15/5 Urinary Catheter: No Services not available here: ICU
[2024-07-14 00:45] VITALS: O2SAT 95
[2024-07-14 01:49] LABS: Basophils Percent Auto 0.1 % (0.0-3.0); Hematocrit 41.4 % (33.0-51.0); Hemoglobin* 13.7 gm/dL (12.0-16.0); Immature Granulocytes Pct Auto 0.2 %; Lymphocytes Percent Auto 1.8 % (20-44); Mean Corpuscular HGB Conc 33 gm/dL (32-36); Mean Corpuscular Hemoglobin 27 pg (26-34); Mean Corpuscular Volume 80 fL (80-100); Monocytes Percent Auto 1.4 % (0.0-11.0); Neutrophils Percent Auto 96.5 % (42.0-72.0); Platelet Count* 247 K/uL (140-440); RDW Coefficient of Variation % 13.2 % (11.5-15.5); Red Blood Count 5.16 m/uL (4.00-5.20); White Blood Count* 12.51 K/uL (4.50-11.00)
--- NOTE | 2024-07-14 01:50 | PC.NURSE ---
Bipap started per Dr. Dias- see intervention for current settings.
[2024-07-14 01:53] LABS: Slide Review Reflex No
[2024-07-14 01:56] VITALS: BP 116/88; PULSE 128; RESP 28; TEMP 36.3; O2SAT 98
[2024-07-14 02:12] LABS: C Reactive Protein* 1.2 mg/dL (0.5-1.0)
[2024-07-14 02:26] LABS: Procalcitonin* 0.54 ng/mL (<0.50)
--- NOTE | 2024-07-14 02:57 | PC.NURSE ---
Care note [id number]: Pt admitted from ED to med/surg unit at approximately 2235 last evening accompanied by paternal grandmother whom patient lives with. Pt noted to be alert & oriented x 4, able to answer questions though only in one word answers due to dyspnea. High fowlers position utilized in bed due to asthma exacerbation. Expiratory and inspiratory wheezing noted bilaterally to all lung maguire upon auscultation. Pt denied pain when asked. 20G IV in place to R AC with NS started per MD order. Pt was given PRN Albuterol nebulizer just prior to 2300. Pt on tele with sinus tachycardia noted. Pt was started on high flow oxygen by evening RN per MD order. Pt continent of bladder using BSC and voided x1. Pt noted to be afebrile with regular heart rhythm. Pt started on Bipap at approximately 0130 by MD Dias. IPAP 15, EPAP 7 and FI02 50%. decreased EPAP to 5 just prior to pt transfer. Hearing Aid Technician spoke with KATY Briceno at [facility] ICU to provide nurse to nurse report prior to patient transferring. Pt transferred to [facility] via ambulance by EMS at 0235. Pt transferred to room 3904 Bed 1 at [facility].
== END 2024-07-14 02:35 | disposition short-term general hospital (02) | DRG 189 ==
LOC: ED 21:10 → MEDSURG 22:31
PROVIDERS: Admitting Provider Family Medicine; Emergency Provider Student in an Organized Health Care Education/Training Program; Visit Provider Family Medicine
DX: J96.01 Acute respiratory failure with hypoxia (principal); J45.51 Severe persistent asthma with (acute) exacerbation; Z91.09 Other allergy status, other than to drugs and biological substances; Z87.891 Personal history of nicotine dependence
CPT/HCPCS: 36415; 36600; 71046; 82803; 84145; 85025; 86140; 87631; 94640; 94660; 94761; 99284; J3475; J7030; J7512

== ENCOUNTER 2024-07-14 02:12 | Outpatient (CLI) | payer OTHER, SELFPAY | END 2024-07-14 02:13 | disposition home or self-care (01) | LOC: AMB 07-16 00:21 | PROVIDERS: Visit Provider Family Medicine | DX: R09.02 Hypoxemia (principal); J96.01 Acute respiratory failure with hypoxia; J45.901 Unspecified asthma with (acute) exacerbation | CPT/HCPCS: A0425; A0427 ==